=== PATIENT | female | born 1940 | race Caucasian/White ===

== ENCOUNTER 2023-05-24 11:28 | Inpatient (IN) | payer OTHER, BC ==
[2023-05-24] MEDS ORDERED: ACETAMINOPHEN 325 MG TABLET (FP) PO ONE (13:01)
[2023-05-24] MEDS ORDERED: ACETAMINOPHEN 325 MG TABLET (FP) ONE (13:33)
[2023-05-24 14:19] LABS: BASO % 0.4 % (0-2.0); EOS % 0.5 % (0-4.5); HEMATOCRIT 36.2 % (32.4-45.2); HEMOGLOBIN 12.5 GM/dL (10.7-15.3); LYMPH % 13.3 % (8-40); MCH 29.8 pg (25.7-33.7); MCHC 34.6 g/dl (32.0-36.0); MEAN CELL VOLUME 86.1 fl (80-96); MONO % 8.6 % (3.8-10.2); NEUT % 77.2 % (42.8-82.8); PLATELET COUNT 267 10^3/uL (134-434); RDW 14.1 % (11.6-15.6); WHITE BLOOD COUNT 9.9 K/mm3 (4.0-10.0)
[2023-05-24 14:37] LABS: POTASSIUM 3.2 mmol/L (3.5-5.1)
[2023-05-24 14:40] LABS: CALCIUM 9.5 mg/dL (8.5-10.1)
[2023-05-24 14:41] LABS: ALBUMIN 3.7 g/dl (3.4-5.0); BLOOD UREA NITROGEN 22.6 mg/dL (7-18)
[2023-05-24 14:44] LABS: CREATININE 1.4 mg/dL (0.55-1.3)
[2023-05-24 14:46] LABS: TOT PROT 7.4 g/dl (6.4-8.2)
[2023-05-24] MEDS ORDERED: POTASSIUM CHLORIDE ORAL LIQUID 20 MEQ/15 ML PO ONE (14:56)
[2023-05-24] MEDS ORDERED: ASPIRIN 81 MG CHEWABLE TABLETS PO ONE (14:57)
[2023-05-24] MEDS ORDERED: KCL 10 MEQ IVPB 10 MEQ/100 ML INFUS.BAG IVPB SCH (15:00)
[2023-05-24] MEDS ORDERED: POTASSIUM CHLORIDE ORAL LIQUID 20 MEQ/15 ML ONE (15:11)
[2023-05-24] MEDS ORDERED: ASPIRIN 81 MG CHEWABLE TABLETS ONE (15:11)
[2023-05-24 18:32] LABS: EPI CELLS 2 /uL (0-25.1); HYALINE CASTS 1 /uL (0-3.1); PH,URINE 5.5 (5.0-8.0); URINE APPEARANCE CLEAR; URINE BACTERIA 6816 /uL (0-1359); URINE BILIRUBIN NEGATIVE (NEGATIVE); URINE COLOR YELLOW; URINE GLUCOSE (UA) NEGATIVE (NEGATIVE); URINE KETONE NEGATIVE (NEGATIVE); URINE LEUK ESTERASE 1+ (NEGATIVE); URINE NITRITE NEGATIVE (NEGATIVE); URINE PROTEIN NEGATIVE (NEGATIVE); URINE RBC 8 /uL (0-23.9); URINE UROBILINOGEN 0.2 mg/dL (0.2-1.0); URINE WBC 115 /uL (0-25.8)
[2023-05-24 20:15] LABS: BILIRUBIN,DIRECT 0.4 mg/dL (0.0-0.2)
[2023-05-24] MEDS ORDERED: METOPROLOL TARTRATE 50 MG TABLET (FP) PO SCH (22:00)
[2023-05-24] MEDS: METOPROLOL TARTRATE 50 MG TABLET (FP) PO SCH (22:33)
[2023-05-24] MEDS ORDERED: ATORVASTATIN CA 40 MG TABLET (FP) ONE (22:38)
[2023-05-24] MEDS ORDERED: HEPARIN NA (PORCINE) 5,000 UNITS/ML 1ML VIAL ONE (22:39)
[2023-05-24] MEDS: HEPARIN NA (PORCINE) 5,000 UNITS/ML 1ML VIAL SQ SCH (22:56)
[2023-05-24] MEDS: MYCOPHENOLATE MOFETIL 500 MG TABLET PO SCH (22:56)
[2023-05-24] MEDS: ATORVASTATIN CA 40 MG TABLET (FP) PO SCH (22:56)
[2023-05-25] MEDS ORDERED: LEVOTHYROXINE NA 75 MCG TABLET (FP) ONE (06:29)
[2023-05-25] MEDS ORDERED: HEPARIN NA (PORCINE) 5,000 UNITS/ML 1ML VIAL ONE (06:29)
[2023-05-25] MEDS: LEVOTHYROXINE NA 75 MCG TABLET (FP) PO SCH (06:34)
[2023-05-25] MEDS: HEPARIN NA (PORCINE) 5,000 UNITS/ML 1ML VIAL SQ SCH ×3 (06:34→21:50)
[2023-05-25 07:41] LABS: BASO % 0.9 % (0-2.0); EOS % 1.6 % (0-4.5); HEMATOCRIT 36.6 % (32.4-45.2); HEMOGLOBIN 12.6 GM/dL (10.7-15.3); LYMPH % 14.5 % (8-40); MCHC 34.4 g/dl (32.0-36.0); MEAN CELL VOLUME 87.2 fl (80-96); MEAN PLT VOLUME 8.8 fl (7.5-11.1); PLATELET COUNT 262 10^3/uL (134-434); RDW 14.1 % (11.6-15.6); WHITE BLOOD COUNT 6.2 K/mm3 (4.0-10.0)
[2023-05-25 08:06] LABS: POTASSIUM 3.1 mmol/L (3.5-5.1)
[2023-05-25 08:10] LABS: CALCIUM 9.2 mg/dL (8.5-10.1)
[2023-05-25 08:12] LABS: ALBUMIN 3.5 g/dl (3.4-5.0); MAGNESIUM 1.9 mg/dL (1.8-2.4)
[2023-05-25 08:15] LABS: CREATININE 1.2 mg/dL (0.55-1.3); PHOSPHOROUS 2.8 mg/dL (2.5-4.9)
[2023-05-25 08:16] LABS: TOT PROT 7.2 g/dl (6.4-8.2)
[2023-05-25] MEDS ORDERED: PATIENT'S OWN MEDICATION (NON-FORMULARY) (Olmesartan/Amlodipin/Hcthiazid [Tribenzor 20-5-1 PO SCH (10:00)
[2023-05-25] MEDS: ASPIRIN COATED 81 MG TABLET.EC PO SCH (11:38)
[2023-05-25] MEDS: LOSARTAN 50MG/HCTZ 12.5MG 1 TAB PO SCH (11:38)
[2023-05-25] MEDS: MYCOPHENOLATE MOFETIL 500 MG TABLET PO SCH ×2 (11:38→21:48)
[2023-05-25] MEDS: amLODIPine BESYLATE 5 MG TABLET (FP) PO SCH (11:39)
[2023-05-25] MEDS: METOPROLOL TARTRATE 50 MG TABLET (FP) PO SCH ×2 (11:39→21:50)
[2023-05-25] MEDS ORDERED: ATORVASTATIN CA 20 MG TABLET (FP) ONE (20:50)
[2023-05-25] MEDS: ATORVASTATIN CA 40 MG TABLET (FP) PO SCH (21:50)
[2023-05-26] MEDS: LEVOTHYROXINE NA 75 MCG TABLET (FP) PO SCH ×2 (05:55→06:00)
[2023-05-26] MEDS: HEPARIN NA (PORCINE) 5,000 UNITS/ML 1ML VIAL SQ SCH ×3 (06:00→21:25)
[2023-05-26] MEDS: ASPIRIN COATED 81 MG TABLET.EC PO SCH (10:34)
[2023-05-26] MEDS: MYCOPHENOLATE MOFETIL 500 MG TABLET PO SCH ×2 (10:35→21:23)
[2023-05-26] MEDS: LOSARTAN 50MG/HCTZ 12.5MG 1 TAB PO SCH (10:35)
[2023-05-26] MEDS: METOPROLOL TARTRATE 50 MG TABLET (FP) PO SCH ×2 (10:35→21:24)
[2023-05-26] MEDS: amLODIPine BESYLATE 5 MG TABLET (FP) PO SCH (10:35)
[2023-05-26] MEDS: ATORVASTATIN CA 40 MG TABLET (FP) PO SCH (21:23)
[2023-05-27] MEDS: HEPARIN NA (PORCINE) 5,000 UNITS/ML 1ML VIAL SQ SCH ×3 (06:01→22:22)
[2023-05-27] MEDS: LEVOTHYROXINE NA 75 MCG TABLET (FP) PO SCH (06:02)
[2023-05-27 08:52] LABS: BASO % 0.7 % (0-2.0); EOS % 1.8 % (0-4.5); HEMATOCRIT 37.2 % (32.4-45.2); HEMOGLOBIN 12.4 GM/dL (10.7-15.3); LYMPH % 15.5 % (8-40); MCH 29.4 pg (25.7-33.7); MCHC 33.4 g/dl (32.0-36.0); MEAN CELL VOLUME 87.8 fl (80-96); MONO % 9.4 % (3.8-10.2); NEUT % 72.6 % (42.8-82.8); PLATELET COUNT 266 10^3/uL (134-434); RBC 4.24 M/mm3 (3.60-5.2); RDW 14.3 % (11.6-15.6)
[2023-05-27 09:21] LABS: BLOOD UREA NITROGEN 19.4 mg/dL (7-18); MAGNESIUM 2.1 mg/dL (1.8-2.4)
[2023-05-27 09:22] LABS: ALBUMIN 3.3 g/dl (3.4-5.0)
[2023-05-27 09:24] LABS: CREATININE 1.2 mg/dL (0.55-1.3)
[2023-05-27 09:27] LABS: BILIRUBIN,TOTAL 1.5 mg/dL (0.2-1)
[2023-05-27] MEDS: METOPROLOL TARTRATE 50 MG TABLET (FP) PO SCH ×2 (09:55→22:17)
[2023-05-27] MEDS: MYCOPHENOLATE MOFETIL 500 MG TABLET PO SCH ×2 (10:01→22:17)
[2023-05-27] MEDS: amLODIPine BESYLATE 5 MG TABLET (FP) PO SCH (10:01)
[2023-05-27] MEDS: ASPIRIN COATED 81 MG TABLET.EC PO SCH (10:01)
[2023-05-27] MEDS: LOSARTAN 50MG/HCTZ 12.5MG 1 TAB PO SCH (10:01)
[2023-05-27] MEDS ORDERED: POTASSIUM CHLORIDE TABS 20 MEQ TABLET.ER (FP) PO ONE (11:01)
[2023-05-27] MEDS ORDERED: ACETAMINOPHEN 1000 MG/100 ML BAG IVPB PRN (11:02)
[2023-05-27] MEDS ORDERED: ACETAMINOPHEN 325 MG TABLET (FP) PO PRN (15:34)
[2023-05-27 15:53] VITALS: BMI 21.6
[2023-05-27] MEDS: ATORVASTATIN CA 40 MG TABLET (FP) PO SCH (22:17)
[2023-05-28] MEDS: LEVOTHYROXINE NA 75 MCG TABLET (FP) PO SCH (06:47)
[2023-05-28] MEDS: HEPARIN NA (PORCINE) 5,000 UNITS/ML 1ML VIAL SQ SCH ×3 (06:47→23:10)
[2023-05-28] MEDS ORDERED: POTASSIUM CHLORIDE TABS 20 MEQ TABLET.ER (FP) PO ONE (08:24)
[2023-05-28] MEDS ORDERED: POTASSIUM CHLORIDE TABS 10 MEQ TABLET.ER (FP) PO ONE (08:24)
[2023-05-28] MEDS: amLODIPine BESYLATE 5 MG TABLET (FP) PO SCH (09:00)
[2023-05-28] MEDS: LOSARTAN 50MG/HCTZ 12.5MG 1 TAB PO SCH (09:00)
[2023-05-28] MEDS: MYCOPHENOLATE MOFETIL 500 MG TABLET PO SCH ×2 (09:00→23:10)
[2023-05-28] MEDS: METOPROLOL TARTRATE 50 MG TABLET (FP) PO SCH ×2 (09:01→23:11)
[2023-05-28] MEDS: ASPIRIN COATED 81 MG TABLET.EC PO SCH (09:01)
[2023-05-28] MEDS: POTASSIUM CHLORIDE TABS 20 MEQ TABLET.ER (FP) PO SCH (13:18)
[2023-05-28 14:02] LABS: HEMOGLOBIN 12.5 GM/dL (10.7-15.3); MCH 29.1 pg (25.7-33.7); MCHC 32.9 g/dl (32.0-36.0); MEAN CELL VOLUME 88.4 fl (80-96); MEAN PLT VOLUME 8.9 fl (7.5-11.1); PLATELET COUNT 267 10^3/uL (134-434); RBC 4.29 M/mm3 (3.60-5.2); RDW 14.1 % (11.6-15.6); WHITE BLOOD COUNT 8.7 K/mm3 (4.0-10.0)
[2023-05-28 14:13] LABS: POTASSIUM 3.7 mmol/L (3.5-5.1)
[2023-05-28 14:15] LABS: ALBUMIN 3.3 g/dl (3.4-5.0); CALCIUM 8.8 mg/dL (8.5-10.1); MAGNESIUM 2.3 mg/dL (1.8-2.4)
[2023-05-28 14:16] LABS: BLOOD UREA NITROGEN 24.3 mg/dL (7-18)
[2023-05-28 14:19] LABS: CREATININE 1.3 mg/dL (0.55-1.3); PHOSPHOROUS 2.4 mg/dL (2.5-4.9)
[2023-05-28 14:20] LABS: BILIRUBIN,TOTAL 1.4 mg/dL (0.2-1); TOT PROT 7.1 g/dl (6.4-8.2)
[2023-05-28] MEDS: ATORVASTATIN CA 40 MG TABLET (FP) PO SCH (23:10)
[2023-05-29] MEDS: HEPARIN NA (PORCINE) 5,000 UNITS/ML 1ML VIAL SQ SCH ×3 (05:51→22:21)
[2023-05-29] MEDS: LEVOTHYROXINE NA 75 MCG TABLET (FP) PO SCH (06:09)
[2023-05-29] MEDS: MYCOPHENOLATE MOFETIL 500 MG TABLET PO SCH (10:04)
[2023-05-29] MEDS: LOSARTAN 50MG/HCTZ 12.5MG 1 TAB PO SCH (10:04)
[2023-05-29] MEDS: POTASSIUM CHLORIDE TABS 20 MEQ TABLET.ER (FP) PO SCH (10:04)
[2023-05-29] MEDS: amLODIPine BESYLATE 5 MG TABLET (FP) PO SCH (10:04)
[2023-05-29] MEDS: ASPIRIN COATED 81 MG TABLET.EC PO SCH (10:04)
[2023-05-29] MEDS: METOPROLOL TARTRATE 50 MG TABLET (FP) PO SCH (10:05)
[2023-05-29] MEDS: ATORVASTATIN CA 40 MG TABLET (FP) PO SCH (22:21)
[2023-05-29] MEDS: METOPROLOL TARTRATE 25 MG TABLET (FP) PO SCH (22:22)
[2023-05-30] MEDS: MYCOPHENOLATE MOFETIL 500 MG TABLET PO SCH ×4 (00:53→21:40)
[2023-05-30] MEDS: HEPARIN NA (PORCINE) 5,000 UNITS/ML 1ML VIAL SQ SCH ×3 (05:44→21:40)
[2023-05-30] MEDS: LEVOTHYROXINE NA 75 MCG TABLET (FP) PO SCH (06:29)
[2023-05-30] MEDS: amLODIPine BESYLATE 5 MG TABLET (FP) PO SCH (09:24)
[2023-05-30] MEDS: LOSARTAN 50MG/HCTZ 12.5MG 1 TAB PO SCH (09:24)
[2023-05-30] MEDS: ASPIRIN COATED 81 MG TABLET.EC PO SCH (09:24)
[2023-05-30] MEDS: POTASSIUM CHLORIDE TABS 20 MEQ TABLET.ER (FP) PO SCH (09:24)
[2023-05-30] MEDS: METOPROLOL TARTRATE 25 MG TABLET (FP) PO SCH ×2 (09:24→21:40)
[2023-05-30] MEDS ORDERED: LIDOCAINE 4% PATCH TP ONE (11:15)
[2023-05-30 12:57] LABS: BASO % 1.1 % (0-2.0); EOS % 3.1 % (0-4.5); HEMATOCRIT 35.4 % (32.4-45.2); HEMOGLOBIN 12.2 GM/dL (10.7-15.3); LYMPH % 16.1 % (8-40); MCH 29.8 pg (25.7-33.7); MCHC 34.3 g/dl (32.0-36.0); MEAN CELL VOLUME 86.9 fl (80-96); MEAN PLT VOLUME 9.6 fl (7.5-11.1); MONO % 12.7 % (3.8-10.2); PLATELET COUNT 278 10^3/uL (134-434); RBC 4.08 M/mm3 (3.60-5.2); RDW 14.6 % (11.6-15.6); WHITE BLOOD COUNT 6.7 K/mm3 (4.0-10.0)
[2023-05-30 13:17] LABS: POTASSIUM 4.6 mmol/L (3.5-5.1)
[2023-05-30 13:20] LABS: BLOOD UREA NITROGEN 19.8 mg/dL (7-18)
[2023-05-30 13:23] LABS: CREATININE 1.2 mg/dL (0.55-1.3)
[2023-05-30 15:23] VITALS: RESP 18
[2023-05-30] MEDS: ATORVASTATIN CA 40 MG TABLET (FP) PO SCH (21:40)
[2023-05-30] MEDS ORDERED: LIDOCAINE PATCH REMOVAL MC SCH (22:00)
[2023-05-31] MEDS: LEVOTHYROXINE NA 75 MCG TABLET (FP) PO SCH (06:16)
[2023-05-31] MEDS: HEPARIN NA (PORCINE) 5,000 UNITS/ML 1ML VIAL SQ SCH ×2 (06:16→13:49)
[2023-05-31] MEDS ORDERED: NAPH,MB-DB/K PH,MBDB POWDER PACKET PO ONE (07:53)
[2023-05-31] MEDS: METOPROLOL TARTRATE 25 MG TABLET (FP) PO SCH (09:19)
[2023-05-31] MEDS: amLODIPine BESYLATE 5 MG TABLET (FP) PO SCH (09:19)
[2023-05-31] MEDS: LOSARTAN 50MG/HCTZ 12.5MG 1 TAB PO SCH (09:19)
[2023-05-31] MEDS: MYCOPHENOLATE MOFETIL 500 MG TABLET PO SCH (09:19)
[2023-05-31] MEDS: ASPIRIN COATED 81 MG TABLET.EC PO SCH (09:20)
[2023-05-31 15:43] VITALS: BP 129/61; PULSE 52; TEMP 98.4
== END 2023-05-31 20:30 | DRG 309 ==
LOC: JER 11:28 → JERBED 17:29 → J4W 05-25 11:56 → OBSVTOIN 05-25 15:04 → J4W 05-26 21:48
PROVIDERS: ATTEND Internal Medicine
DX: R00.1 Bradycardia, unspecified (principal); I13.0 Hypertensive heart and chronic kidney disease with heart failure and stage 1 through stage 4 chronic kidney disease, or unspecified chronic kidney disease; I50.32 Chronic diastolic (congestive) heart failure; M31.30 Wegener's granulomatosis without renal involvement; M32.9 Systemic lupus erythematosus, unspecified; E78.5 Hyperlipidemia, unspecified; N18.9 Chronic kidney disease, unspecified; E06.3 Autoimmune thyroiditis; I44.7 Left bundle-branch block, unspecified; M25.512 Pain in left shoulder; Z86.73 Personal history of transient ischemic attack (TIA), and cerebral infarction without residual deficits; W18.30XA Fall on same level, unspecified, initial encounter; Y92.89 Other specified places as the place of occurrence of the external cause; M81.0 Age-related osteoporosis without current pathological fracture
CPT/HCPCS: 36415; 70450-TC; 72125-TC; 73030-TC-LT-FY; 73200-TC-RT; 73562-TC-LT-FY; 76705-TC; 80048; 80053; 81003; 82248; 82550; 83735; 84100; 84439; 84443; 84484; 85025; 85027; 87086; 87186; 87635; 93005; 93010; 93306-TC; 97116-GP; 97161-GP; 99285-25; G0378; J1644; J7517